=== PATIENT | male | born 1980 | race Two or more races ===

== ENCOUNTER 2020-12-04 17:47 | Emergency (ER) | payer OTHER ==
[~2020-12-04] VITALS: Ht 180.3 cm; Wt 81.6 kg
[2020-12-04 18:06] VITALS: BP 145/85
--- NOTE | 2020-12-04 18:18 | NUR ---
LUCIO MCELROY AT BEDSIDE
[2020-12-04] MEDS ORDERED: ACETAMINOPHEN ES 500 MG TABLET ONE (18:30)
[2020-12-04] MEDS ORDERED: IV NS 0.9% 1,000 ML BAG IV ONE (18:30)
[2020-12-04] MEDS ORDERED: ACETAMINOPHEN ES 500 MG TABLET PO ONE (18:30)
--- NOTE | 2020-12-04 18:41 | NUR ---
PATIENT REFUSED TESTS
--- NOTE | 2020-12-04 18:42 | NUR ---
PATIENT LEFT AMA
== END 2020-12-04 18:51 | disposition left against medical advice (07) ==
LOC: ER 17:53
DX: M54.50 Low back pain, unspecified (principal); R50.9 Fever, unspecified
CPT/HCPCS: J7030

== ENCOUNTER 2024-01-02 18:16 | Emergency (ER) | payer MEDICAID, OTHER ==
[~2024-01-02] VITALS: Ht 172.7 cm; Wt 83.9 kg
[2024-01-02 19:29] VITALS: BP 138/80; TEMP 98.6; O2SAT 99
== END 2024-01-02 19:56 | disposition home or self-care (01) ==
LOC: ER 18:32
DX: R10.9 Unspecified abdominal pain (principal); I10 Essential (primary) hypertension; Z60.2 Problems related to living alone

== ENCOUNTER 2024-02-10 17:17 | Emergency (ER) | payer MEDICAID ==
[~2024-02-10] VITALS: Ht 180.3 cm; Wt 82.1 kg
[2024-02-10 18:25] VITALS: TEMP 98.2
[2024-02-10 18:39] LABS: BASOPHILS % (AUTO) 0.4 % (0.0-2.0); EOSINOPHILS # (AUTO) 0.2 K/uL (0.0-0.7); EOSINOPHILS % (AUTO) 2.5 % (0.0-6.0); HEMATOCRIT 44 % (39-51); HEMOGLOBIN 15.4 g/dL (13.5-17.5); LYMPHOCYTES # (AUTO) 1.4 K/uL (0.8-4.8); LYMPHOCYTES % (AUTO) 22.5 % (20.0-44.0); MEAN CORPUSCULAR HEMOGLOBIN 29 PG (26.0-33.0); MEAN CORPUSCULAR HGB CONC 35 g/dl (31.0-36.0); MEAN CORPUSCULAR VOLUME 84 fL (80-96); MONOCYTES # (AUTO) 0.6 K/uL (0.1-1.30); MONOCYTES % (AUTO) 9.8 % (2.0-12.0); NEUTROPHILS # (AUTO) 4.1 K/uL (1.8-8.9); NEUTROPHILS % (AUTO) 64.8 % (43.0-81.0); PLATELET COUNT (AUTO) 276 K/uL (150-450); RED BLOOD CELL COUNT(AUTO) 5.27 MIL/uL (4.5-6.0); RED CELL DISTRIBUTION WIDTH 13.2 % (11.5-15.0); WHITE BLOOD COUNT (AUTO) 6.3 K/uL (4.3-11.0)
[2024-02-10 19:05] LABS: CALCIUM, SERUM 8.8 mg/dL (8.5-10.1); POTASSIUM 4.1 mmol/L (3.5-5.1)
[2024-02-10] MEDS: IBUPROFEN 600 MG TABLET PO ONE (19:30)
[2024-02-10] MEDS ORDERED: IBUPROFEN 600 MG TABLET ONE (19:46)
[2024-02-10] MEDS ORDERED: IBUP-1490 PO (21:20)
[2024-02-10] MEDS ORDERED: ACET-2605 PO (21:20)
[2024-02-11 04:47] VITALS: BP 117/68; O2SAT 98
== END 2024-02-10 21:35 | disposition home or self-care (01) ==
LOC: ER 17:35
DX: R07.89 Other chest pain (principal); R06.00 Dyspnea, unspecified; R07.81 Pleurodynia; Z60.2 Problems related to living alone
CPT/HCPCS: 36415; 71045-TC; 80048-TC; 84484-TC; 85025-TC